=== PATIENT | female | born 1935 | race Caucasian/White ===

== ENCOUNTER 2018-06-05 19:48 | Inpatient (IN) | payer OTHER ==
[2018-06-05] MEDS ORDERED: ACETAMINOPHEN 325 MG TAB PO ONE (19:52)
[2018-06-05 20:15] LABS: PLATELET COUNT 182 10^3/uL (150-400)
--- NOTE | 2018-06-05 20:19 | EDPHY ---
H & P Stated Complaint: Altered mental status Time Seen by Provider: 06/05/18 19:51 HPI/ROS: CHIEF COMPLAINT: Confusion Limitations: Confusion HISTORY OF PRESENT ILLNESS: 82-year-old female presents with confusion. Onset of confusion yesterday. Associated with not feeling well. Her sister who lives on the [place] [facility] called 911 today for a welfare check because she was not able to get a hold of the patient. On EMS arrival, pt was confused and unable to explain her sx. There are multiple bottles of supplements around the house and the patient appeared to be quite organized. Seemed very unusual to them that she would be confused, given her very neat and organized house. She takes 15 supplement today for several years, without change in dosing. No URI symptoms, vomiting, abdominal pain, diarrhea, fever, cough or other symptoms. Denies headache. No recent fall. REVIEW OF SYSTEMS: complete 10 point ROS reviewed and is negative except for the noted elements in the HPI - Personal History Current Tetanus/Diphtheria Vaccine: Unsure Current Tetanus Diphtheria and Acellular Pertussis (TDAP): Unsure - Medical/Surgical History Hx Asthma: No Hx Chronic Respiratory Disease: No Hx Diabetes: No Hx Cardiac Disease: No Hx Renal Disease: No Hx Cirrhosis: No Hx Alcoholism: No Hx HIV/AIDS: No Hx Splenectomy or Spleen Trauma: No - Social History Smoking Status: Never smoked Alcohol Use: Sober Drug Use: None Additional Social History: Lives alone in own home - Physical Exam Exam: General Appearance: Alert, pleasant Eyes: Pupils equal and round, no conjunctival pallor or injection ENT, Mouth: Mucous membranes slightly dry Neck: Normal inspection Respiratory: Lungs are clear to auscultation Cardiovascular: Regular rate and rhythm Gastrointestinal: Abdomen is soft and nontender Neurological: alert, oriented to person only, motor 5/5, sensory grossly intact , cranial nerves grossly intact Skin: Warm and dry Extremities: Normal inspection Psychiatric: Flat affect Constitutional: Initial Vital Signs Temperature (C) 36.8 C 06/05/18 19:53 Heart Rate 79 06/05/18 19:53 Respiratory Rate 18 06/05/18 19:53 Blood Pressure 127/62 H 06/05/18 19:53 O2 Sat (%) 97 06/05/18 19:53 O2 Delivery Mode Room Air Allergies/Adverse Reactions: No Known Allergies Allergy (Unverified 06/05/18 19:52) Home Medications: Medication Instructions Recorded NK [No Known Home Meds] 06/05/18 Medical Decision Making - Diagnostics Imaging Results: CT head: air within cavernous sinus, likely secondary to IV Imaging: Discussed imaging studies w/ food service team member Radiologist ED Course/Re-evaluation: This pt presents with confusion of unclear duration. She has a low grade fever. Fever w/u is unremarkable, without obvious source. Mild hyponatremia, likely contributing to confusion. Pt dehydrated on exam with clinical h/o decreased oral intake. IV NS given. CT head reveals air within the cavernous sinus, likely secondary to IV. Doubt as etiology for confusion. d/w pt, remains confused. Neuro exam unchanged. Pt unable to safely go home, will need admission for further evaluation. The hospitalist service was consulted for admission. Differential Diagnosis: includes though not limited to infectious etiology such as UTI, pneumonia, influenza; CVA; electrolyte abn, hypoglycemia - Data Points Laboratory Results: Laboratory Results 06/05/18 19:50 06/05/18 19:50 06/05/18 19:58 TSH 2.420 uIU/mL uIU/mL (0.465-4.680) Medications Given: Acetaminophen (Tylenol) 650 mg PO Q4HRS PRN PRN Reason: Pain, Mild/Fever, Can Take PO Stop: 12/02/18 22:24 Last Admin: 06/06/18 08:41 Dose: 650 mg Dextrose/Sodium Chloride (D5w 1/2 Ns) 1,000 mls @ 75 mls/hr IV CONT DORIS Stop: 12/03/18 01:29 Last Admin: 06/06/18 10:31 Dose: 1,000 mls Discontinued Medications Acetaminophen (Tylenol) 650 mg PO EDNOW ONE Stop: 06/05/18 19:53 Last Admin: 06/05/18 20:02 Dose: 650 mg Sodium Chloride (Ns) 1,000 mls @ 0 mls/hr IV ONCE ONE; Wide Open PRN Reason: Protocol Stop: 06/05/18 20:21 Last Admin: 06/05/18 20:20 Dose: 1,000 mls Departure - Departure Disposition: [facility] In[facility] Acute
[2018-06-05] MEDS ORDERED: NS 1,000 ML IV ONE (20:20)
[2018-06-05 20:24] LABS: INR 1.07 (0.83-1.16); PROTIME(PATIENT) 14.1 SEC (12.0-15.0)
[2018-06-05] MEDS ORDERED: ONDANSETRON 4 MG/2 ML VIAL IVP PRN (22:25)
[2018-06-05] MEDS ORDERED: ONDANSETRON DISINTEGRATING 4 MG TAB PO PRN (22:25)
[2018-06-05] MEDS ORDERED: NS 1,000 ML IV SCH (22:30)
[2018-06-06] MEDS: D5W 1/2 NS 1,000 ML IV SCH ×2 (01:58→10:31)
--- NOTE | 2018-06-06 04:04 | GHP ---
DATE OF ADMISSION: 06/06/2018 SOURCE: Patient is able to provide limited history. During the interview, she has progressively declining mental status and is increasingly confused and restless. EMR was reviewed and case discussed with accepting hospitalist. CHIEF COMPLAINT: Confusion. HISTORY OF PRESENT ILLNESS: This is a pleasant 82-year-old female, who denies any past medical history and otherwise states that she is healthy, who presents to the emergency department after her sister, who lives on the [facility] called for a welfare check. Apparently patient had not called or talked to her, and the sister was unable to reach her by phone. The patient reports that she has been feeling unwell for 24 hours. She is not able to elaborate any additional details. She denies any fevers or chills. She does report that she started to develop a tremor since she arrived here. She denies any headache. No changes in vision. No sore throat. No rhinorrhea. No chest pain. No palpitations. No shortness of breath. No abdominal pain. No nausea , vomiting, or diarrhea. No dysuria or hematuria. Patient does note she has a remote history of recurrent thrombophlebitis, which required excision of superficial vessels. She denies any exacerbations of this at this time. Upon arrival to medical floor RN noted patient was ambulating with minimal assistance. She transported via wheelchair from the emergency department and was able to ambulate with minimal assistance. Additionally RN had noted patient 's initial intake was reported by the patient and she was able to answer questions appropriately. Over the course of my interview however patient developed increasing confusion. She was not answering questions appropriately. Within the 2-5 minutes that I stepped out to discuss plan with the RN patient had been able to get out of bed and she was noted to be on the ground in the bathroom with her pants half-way down. She was not able to stand up afterward dependently and she was leaning backward trying to grasp onto the RN or the bradford. She did not have any noted the tonic clonic activity, tongue biting. She had minimal amount of incontinence when she was found on the floor but subsequently placed on a bedside commode and voided and stooled. REVIEW OF SYSTEMS: 10 systems were reviewed. Negative, except as noted above; however, it is noted that review is limited as patient reports multiple answers , is not able to provide appropriate response. ALLERGIES: No known drug allergies. HOME MEDICATIONS: None listed. Patient denies any prescriptions. She reports that she takes multiple vitamins per day, but she is not able to clarify this. PAST MEDICAL HISTORY: Thrombophlebitis. Otherwise patient denies. PAST SURGICAL HISTORY: Patient reports superficial vein removal. FAMILY HISTORY: Unable to obtain due to patient's mental status. SOCIAL HISTORY: Patient lives alone. Per EMS report to the ED provider, patient's home was well organized and had multiple supplements on the counter. No other medications were noted. At time of interview, patient denies any tobacco, drugs, or alcohol use. CODE STATUS: Unable to discuss this with the patient at this time. Will leave her as a full COR for now pending further direct discussions with the patient once her mentation improves versus additional discussion with patient's sister who lives out of state. PHYSICAL EXAMINATION: VITAL SIGNS: Upon arrival to the emergency department, blood pressure was 127/62, heart rate 79, respiratory rate 18, O2 sat was 97% on room air, temperature 36.8. During my interview, it was noted the patient with increasing confusion and restlessness. Her repeated blood pressure was noted to be 129/73, heart rate of 117 to 120s, respiratory rate 20, pulse ox 96 % on room air, temperature 36.8. GENERAL: No acute distress. Frail, elderly, thin female was lying quietly in the bed. As noted above, during the course of the interview, patient with increasing confusion and restlessness. HEAD: Normocephalic, initially atraumatic. After I left the room for my interview, I went to go discuss orders with the RN, and STEWARD/STEWARDESS THIRD found the patient lying in the bathroom on her back with her head against the wall. It was unclear if she fell all the way backwards or slid. She was quite weak. She would not stand straight and was leaning backwards and then overcompensated by leaning forward. She could not get coordinated despite repeated instructions. She stated she was just trying to go to the bathroom. Following that fall, patient did have a small contusion that was slightly tender on the right posterior head. No lacerations or abrasions noted. EYES: Extraocular muscles grossly intact. Patient did have a little bit of nystagmus in the right eye moving laterally. Pupils were equal, round, reactive to light bilaterally and symmetric. No scleral icterus or conjunctival injection. ENT: Mucous membranes appeared slightly dry. No oropharyngeal erythema or exudates. Dentition in fair condition. No nasal discharge. NECK: Supple. Trachea midline. CV: Tachycardic in the 100s to 120s over the course of several exams. No murmurs, rubs, or gallops appreciated. RESPIRATORY: Unlabored breathing. Lungs were clear to auscultation bilaterally. No wheezes, rales, or rhonchi. ABDOMEN: Soft, nontender to palpation. No rebound, guarding, or masses appreciated. : No suprapubic tenderness to palpation. No Barnhart catheter in place. NEURO: Grossly nonfocal. No facial drooping. Moved all extremities. PSYCH: Patient was quite confused. She was oriented to person. She was initially oriented to place and the year and month; however, over the course of the interview, patient with progressive decline in mental status and subsequently was not able to answer those questions appropriately. She was restless but initially redirectable however progressive increase in confusion and restlessness. . LABORATORY STUDIES: 1. WBC 8.53, H and H are 12.7 and 37.6, MCV 90.4, platelet count is 182. No bands. Neutrophil percent, however, is 87.7. 2. PT is 14.1, INR is 1.07, PTT is 29.3. Lactic acid 1.0. Initial sodium is 128, potassium 3.6, chloride 93, CO2 is 22, anion gap 11, BUN of 23, creatinine 0.8, GFR greater than 60, glucose is 125, calcium is 8.6, total bilirubin 0.7, conjugated 0.2, ALT is 42, AST is 43, alk phos 81, total protein 6.1, albumin 3.6. TSH 2.420. 3. Repeated BMP: Sodium is 135, potassium 3.6, chloride 102, CO2 is 23, anion gap 10, BUN is 22, creatinine 0.8, GFR greater than 60, glucose 109, calcium is 8.5. Troponin is negative. UA: Specific gravity 1.010 with a pH of 5.0, trace ketones, otherwise negative. Flu A/B negative. U-tox is pending. Ethyl alcohol level is negative, less than 10. Blood cultures x2 pending. GI PCR is pending. 4. Chest x-ray: Image and report reviewed by me. Hyperexpansion compatible with COPD. No consolidative air-space opacifications to suggest pneumonia. Peribronchial thickening seen. No effusion. No pneumothorax. Atherosclerotic calcifications in the aorta. 5. CT head without contrast: Image and report reviewed. Negative for acute intracranial hemorrhage. Gas within the cavernous sinus and facial orbital vein suggestive of venous air embolism from venous access. Correlation with history of penetrating trauma recommended. Small focal hypodensity in the left internal capsule likely represents remote lacunar infarcts. Moderate age- related atrophy. No intracranial hemorrhage. 6. EKG reviewed by me shows sinus tachycardia with lots of motion artifact. There is no acute ST elevation. There is a little bit of variable baseline due to motion artifact. No acute ST changes. QTc is 438. ASSESSMENT AND PLAN: Pleasant 82-year-old female who presents to emergency department with confusion. Patient's status has changed slightly. Her vitals were previously within normal limits and now she is quite tachycardic. She also has had increasing confusion and was not able to hold herself up while trying to go to the bathroom and subsequently had a fall. She did not have loss of consciousness, but she is quite confused. Labs were remarkable only for a slightly decreased sodium. Repeated is within acceptable limits. 1. Confusion. Differential diagnosis concerning for infectious versus other metabolic versus neurologic, although less suspicious for this versus cardiac related. No focal deficits noted no reported observation of seizure like activity since arrival to ED/floor. Additional imaging is required due to patient's fall and worsening confusion. Also, she developed significant vomiting, and so once this is treated and stabilized, will have the patient go down to CT. Otherwise, at this time, she is definitely an aspiration risk. Will hold off on antibiotic therapy. Lactate was fine. She has no white count. Additional workup has been negative thus far regarding a potential source for infection, but now that she had some vomiting and diarrhea, will check a GI PCR, check a drug screen, alcohol, and she has 2 blood cultures that are already pending. Nausea, vomiting, and some mild abdominal distention on repeat exam. After patient started vomiting, CT abdomen and pelvis with contrast ordered. Patient previously denied any alcohol, drugs or new OTC medications. multiple vitamins were noted by EMS in her home. 2. Hyponatremia. Patient did end up having a bout of diarrhea shortly after arrival to the floor. Wonder if she has had some gastrointestinal symptoms recently and due to confusion, could not express this. She did have episode of diarrhea, which was sent out for GI PCR. She does appear dry and suspect that her hyponatremia is related to hypovolemia. She did receive a liter of fluid in the emergency department. Repeat BMP shows a corrected sodium of 136. Given patient's recent nausea, vomiting, and need for nothing by mouth status to avoid aspiration at this time, will go ahead and order some D5 half-normal saline without potassium. I don't feel a sodium of 128 would likely cause patient mental status changes. 3. SIRS, Tachycardia,tachypnea suspect some sort of metabolic derangement ongoing. Low suspicion for pulmonary embolism. Patient has not been hypoxic, and she is not complaining of any dyspnea or chest pains. Overall low risk for a pulmonary embolism. Will continue to consider if patient's heart rate is not improved in the near future. She has not been febrile. Sepsis evaluation has been negative with a normal lactate, and blood cultures are pending. CT head negative.no reported history of etoh and level negative but still consideration etoh withdrawal. additional discussion with patient sister in AM. for now holding benzos to minimize further altered 4. Anemia, normocytic. Minimally decreased H and H. No evidence of active bleeding at this time. 5. Chronic medical issues. Patient reports some issues with thrombophlebitis, but this has been treated surgically. She continues to have some episodes in her legs by her report. Thrombophlebitis, status post vein resection. no skin lesions or sores noted on full skin exam. 6. Fluid, electrolyte, nutrition: D5 half-normal saline as noted above. Electrolytes are adequate currently, and will replace if needed. Nothing by mouth status due to patient's nausea, vomiting, and risk of aspiration. 7. Prophylaxis: Anticoagulation is now on hold pending additional workup of patient's head and abdomen. SCDs as tolerated. Patient does have her own tight stockings in already, however. 8. COR status: At this time, unable to have a reasonable discussion with the patient regarding her advanced directive wishes. Will leave her code as full, and followup will be needed to discuss with the patient's sister as patient is unable to participate in the conversation currently. 9. Disposition: [facility] Given the severity of her symptoms, worsening confusion, additional workup needed. Anticipate that she will be here for greater than 2-midnight stay. /[id number]/MODL MTDD
[2018-06-06] MEDS ORDERED: IOPAMIDOL (ISOVUE-300) 100 ML BTL ONE (04:19)
--- NOTE | 2018-06-06 06:16 | CPEKG ---
Test Reason : OPEN Blood Pressure : / mmHG Vent. Rate : 120 BPM Atrial Rate : 120 BPM P-R Int : 052 ms QRS Dur : 079 ms QT Int : 310 ms P-R-T Axes : 065 036 047 degrees QTc Int : 438 ms Sinus tachycardia Confirmed by Petar Francisco ([id number]) on 06/06/2018 6:15:45 AM Referred By: Confirmed By:Petar Francisco
[2018-06-06] MEDS: ACETAMINOPHEN 325 MG TAB PO PRN ×3 (08:41→23:36)
--- NOTE | 2018-06-06 08:49 | PDMN ---
Medical Necessity Medical necessity: Pt meets IP criteria as of 06/05/2018 per and DON MG-N ( neurology GRG); est los > 2 mn for ongoing tx and management of altered mental status in an elderly pt as well as tachycardia and tachypnea; requiring further work up, med management, and therapies.
[2018-06-06] MEDS ORDERED: ENOXAPARIN 40 MG/0.4 ML SYR SC SCH (09:00)
--- NOTE | 2018-06-06 11:20 | ASMTCMCOM ---
CM Note CM Note Notes: Pts case discussed w/ CATRACHO Casanova. Pt is a 82 y/o female admitted for confusion. Pt was previously living independently. PT has been ordered and awaiting recommendations. Needs are TBD at this time. CM to follow. Plan: TBD Date Signed: 06/06/2018 11:19 AM Electronically Signed By:LENA Hernandez
[2018-06-06] MEDS ORDERED: NS 500 ML IV ONE (14:02)
--- NOTE | 2018-06-06 14:07 | HOSPPROG ---
Hospitalist Progress Note Assessment/Plan: 82 yo F w min PMH here w encephalopathy, nausea, vomiting. This is most c/w viral illness sespis: fever, tachycardia no source identified lactate OK tachcyardia: c/w fever, infection sinus (ekg interp by me) ID: this is most c/w viral infection- fever, nausea, vom influenza neg no meningismus discussed risks and benefits of LP w sister, will hold off for now tachycardia: bolus X 1 and follow encephalopathy: metabolic 2/2 viral infection follow no focal neurologic deficits hold off on further neuro imaging tox screen neg proph: lmwh dispo: inpt Subjective: disucssed case w sister. cxr w no infiltrate (interp by me) Objective: Vital Signs Temp Pulse Resp BP Pulse Ox 37.3 C 89 16 121/60 H 96 06/06/18 11:38 06/06/18 11:38 06/06/18 11:38 06/06/18 11:38 06/06/18 11:38 Microbiology 06/06/18 01:44 Gastrointestinal Tract Panel (PCR) - Final Stool No Organism Detected By Pcr Laboratory Results 06/06/18 04:26 06/05/18 06/06/18 06/07/18 05:59 05:59 05:59 Intake Total 1182 115 Output Total 251 300 Balance 931 -185 PT 14.1 SEC (12.0-15.0) 06/05/18 19:50 INR 1.07 (0.83-1.16) 06/05/18 19:50 - Physical Exam Constitutional: no apparent distress, appears nourished Eyes: PERRL, anicteric sclera Ears, Nose, Mouth, Throat: moist mucous membranes, hearing normal Cardiovascular: regular rate and rhythym, no murmur, rub, or gallop Respiratory: no respiratory distress, no rales or rhonchi Gastrointestinal: normoactive bowel sounds, soft, non-tender abdomen Genitourinary: no bladder fullness, No harrison in urethra Skin: warm, normal color Musculoskeletal: full muscle strength Neurologic: No AAOx3 ICD10 Worksheet Patient Problems: Problems Problem Status Onset Fever Acute
[2018-06-07] MEDS: D5W 1/2 NS 1,000 ML IV SCH (00:30)
[2018-06-07] MEDS ORDERED: NS 500 ML IV ONE ×3 (01:16→02:32)
[2018-06-07] MEDS: ACETAMINOPHEN 325 MG TAB PO PRN (04:02)
[2018-06-07 05:53] LABS: PLATELET COUNT 144 10^3/uL (150-400)
--- NOTE | 2018-06-07 10:32 | HOSPPROG ---
Hospitalist Progress Note Assessment/Plan: 82 yo F w min PMH here w encephalopathy, nausea, vomiting. This is most c/w viral illness sepsis: fever, tachycardia suspect CAP given change in lung exam lactate OK ?community acquired pneumonia: new crackles b/l, no jvd to suggest volume overload start ceftriaxone/azithro cxr now AF: this is new, as far as patient knows CHADSVasc 1 for age follow check echo hold on anticoag tachcyardia: c/w fever, infection sinus (ekg interp by me) ID: this is most c/w viral infection- fever, nausea, vom influenza neg no meningismus discussed risks and benefits of LP w sister, will hold off for now tachycardia: bolus X 1 and follow encephalopathy: metabolic 2/2 infection follow no focal neurologic deficits hold off on further neuro imaging tox screen neg proph: lmwh dispo: inpt Subjective: febrile overight. ekg w new AF (interp by me). more alert. weaker Objective: Vital Signs Temp Pulse Resp BP Pulse Ox 36.8 C 105 H 26 H 109/56 L 94 06/07/18 08:41 06/07/18 08:41 06/07/18 08:41 06/07/18 08:41 06/07/18 08:41 Microbiology 06/06/18 01:44 Gastrointestinal Tract Panel (PCR) - Final Stool No Organism Detected By Pcr Laboratory Results 06/07/18 04:41 06/07/18 04:41 06/06/18 06/07/18 06/08/18 05:59 05:59 05:59 Intake Total 1182 2165 Output Total 251 1400 Balance 931 765 PT 14.1 SEC (12.0-15.0) 06/05/18 19:50 INR 1.07 (0.83-1.16) 06/05/18 19:50 - Physical Exam Constitutional: no apparent distress, appears nourished Eyes: PERRL Ears, Nose, Mouth, Throat: hearing normal, No moist mucous membranes Cardiovascular: irregularly irregular, tachycardia, No systolic murmur, No JVD Respiratory: other (bilateral crackles, R>L. new ffrom yesterday) Gastrointestinal: normoactive bowel sounds, soft, non-tender abdomen Genitourinary: no bladder fullness, No harrison in urethra Skin: warm, normal color Musculoskeletal: no muscle tenderness, No full muscle strength Neurologic: No AAOx3 Psychiatric: interacting appropriately ICD10 Worksheet Patient Problems: Problems Problem Status Onset Fever Acute
[2018-06-07] MEDS: AZITHROMYCIN IV 500 MG in NS 250 ML IV SCH (10:50)
[2018-06-07] MEDS: ENOXAPARIN 30 MG/0.3 ML SYR SC SCH (12:44)
--- NOTE | 2018-06-07 14:03 | CPEKG ---
Test Reason : OPEN Blood Pressure : / mmHG Vent. Rate : 144 BPM Atrial Rate : 207 BPM P-R Int : 118 ms QRS Dur : 074 ms QT Int : 304 ms P-R-T Axes : 246 033 030 degrees QTc Int : 471 ms Atrial fibrillation with rapid V-rate Repolarization abnormality, prob rate related Confirmed by Petar Francisco ([id number]) on 06/07/2018 2:03:38 PM Referred By: Confirmed By:Petar Francisco
[2018-06-07] MEDS ORDERED: NS BOLUS 500 ML (Wide open) IV ONE (16:30)
--- NOTE | 2018-06-07 17:04 | ECHO ---
[email or web address] [address] [address] Main: [phone] Fax: Transthoracic Echocardiogram Name: ASIM SANON MR#: [id number] Study Date: 06/07/2018 Study Time: 10:48 AM Date of : 1935 Age: 82 year(s) Height: 162.6 cm (64 in.) Weight: 53.07 kg (117 lb.) BSA: 1.56 m2 Gender: Female Examination: Echo Indication: new AF Image Quality: Adequate Contrast: Requested by: Clark Martinez BP: 109 mmHg/56 mmHg Heart Rate: Rhythm: Indication: new AF Procedure Staff Flexboard Operator: Eileen Loyola [facility] Reading Physician: Kelvin Arredondo MD Requesting Provider: Conclusions: Normal size left ventricle. No LV hypertrophy. Normal global systolic LV function. EF is 65 %. The mitral valve is normal in appearance and function. Mild mitral valve regurgitation is present. Aortic valve is not well visualized. There is no significant aortic valve regurgitation. No aortic valve stenosis is present. The pulmonary artery pressure could not be adequately estimated. No old studies for comparison. Measurements: Chambers Valvular Assessment AV/MV Valvular Assessment TV/PV Normal Normal Normal Name Value Range Name Value Range Name Value Range Ao Kathy (2D): 2.5 cm (1.4 cm-2.6 AV Vmax: 1.53 m/s (1 m/s-1.7 PV Vmax: 0.91 m/s (0.6 m/s-0.9 cm) m/s) m/s) IVSd (2D): 0.9 cm (0.6 cm-1.1 AV maxP mmHg ( - ) PV PGmax: 3 mmHg ( - ) cm) AV meanP mmHg ( - ) LVDd (2D): 3.6 cm (3.9 cm-5.3 LIBERTY (VTI): 2.0 cm ( - ) cm) MV E Vmax: 1.02 m/s ( - ) LVDs (2D): 2.2 cm (2.1 cm-4 MV A Vmax: 1.01 m/s ( - ) cm) MV E/A: 1.01 ( - ) LVPWd (2D): 0.9 cm ( - ) MV PHT: 0.046 s ( - ) LVOTd 1.9 cm 1.9 cm mm MVA (PHT): 4.8 s ( - ) LVEF (BP): 65 % (>=55 %) RVDd(2D): 2.7 cm (1.9 cm-3.8 cmmm) Patient: ASIM SANON Study Date: 06/07/2018 Page 1 of 2 10:48 AM Continued Measurements: Chambers Valvular Assessment AV/MV Name Value Name Value LADs: 2.8 cm MV DecTime: 158 m/s LADs Lon.5 cm MV E' Septal: 0.09 m/s LA Area: 14.0 cm2 MV E/E' Septal: 11.00 LA Volume: 36 ml MV E/E' Lateral: 9.80 LA Volume Index: 23.1 ml/m2 RA Area: 12.1 cm2 Additional Vessels Name Value Inferior Vena Cava: 1.1 cm Findings: Left Ventricle: Normal size left ventricle. No LV hypertrophy. Normal global systolic LV function. EF is 65 %. No regional wall motion abnormality. Normal diastolic LV function. Right Ventricle: Normal size right ventricle. Normal RV function. Left Atrium: The left atrium is normal in size. Right Atrium: The right atrium is normal in size. Mitral Valve: The mitral valve is normal in appearance and function. Mild mitral valve regurgitation is present. No mitral stenosis is present. Aortic Valve: Aortic valve is not well visualized. There is no significant aortic valve regurgitation. No aortic valve stenosis is present. Tricuspid Valve: The tricuspid valve is normal in appearance and function. Trivial tricuspid valve regurgitation. Pulmonic Valve: The pulmonic valve is normal in appearance and function. There is no pulmonic regurgitation seen. Aorta: The aorta is normal. Normal size aortic root measuring 2.5 cm. IVC: The IVC is normal sized. Pericardium: No pericardial effusion. No pleural effusion. Exam Comments: Technically difficult, patient very thin and disoriented. Some imaging off axis. (No Signature Object) Patient: ASIM SANON Study Date: 06/07/2018 Page 2 of 2 10:48 AM [id number]
[2018-06-08] MEDS: NS 1,000 ML IV SCH ×2 (00:08→08:36)
[2018-06-08] MEDS: ACETAMINOPHEN 325 MG TAB PO PRN (00:29)
[2018-06-08] MEDS ORDERED: DILTIAZEM 25 MG/5 ML VIAL IVP ONE (08:30)
[2018-06-08] MEDS ORDERED: DILTIAZEM 125 MG in D5W 125 ML IV SCH (08:30)
[2018-06-08] MEDS: ENOXAPARIN 30 MG/0.3 ML SYR SC SCH (08:38)
[2018-06-08] MEDS ORDERED: FUROSEMIDE 20 MG/2 ML VIAL IVP ONE (09:08)
[2018-06-08] MEDS: AZITHROMYCIN IV 500 MG in NS 250 ML IV SCH (09:18)
--- NOTE | 2018-06-08 09:28 | HOSPPROG ---
Hospitalist Progress Note Assessment/Plan: 82 yo F w min PMH here w encephalopathy, nausea, vomiting. This is most c/w viral illness sepsis: fever, tachycardia suspect CAP given change in lung exam lactate OK community acquired pneumonia:cxr w RLL pneumonia start ceftriaxone/azithro blood cx neg AF: this is new, as far as patient knows [facility] 1 for age follow echo largely normmal rapid overnight w resulting acute CHF (diastolic) 1. transfer to PCU for dilt gtt 2. lasix X 1 3. cardiology to see 4. echo largely normal 5. may benefit from cardioversion tachcyardia: c/w fever, infection sinus (ekg interp by me) ID: this is most c/w viral infection- fever, nausea, vom influenza neg no meningismus discussed risks and benefits of LP w sister, will hold off for now tachycardia: bolus X 1 and follow encephalopathy: metabolic 2/2 infection follow no focal neurologic deficits hold off on further neuro imaging tox screen neg proph: lmwh dispo: inpt to PCU 35 minutes crit care Subjective: rapid AF overnight w rising 02 requirement. case d.w dr salmon. less confused this AM Objective: Vital Signs Temp Pulse Resp BP Pulse Ox 36.6 C 160 H 36 H 120/88 H 89 L 06/08/18 08:00 06/08/18 08:36 06/08/18 08:00 06/08/18 08:00 06/08/18 08:00 Laboratory Results 06/07/18 04:41 06/07/18 04:41 06/07/18 06/08/18 06/09/18 05:59 05:59 05:59 Intake Total 2165 2130 Output Total 1400 700 Balance 765 1430 PT 14.1 SEC (12.0-15.0) 06/05/18 19:50 INR 1.07 (0.83-1.16) 06/05/18 19:50 - Physical Exam Constitutional: no apparent distress Eyes: PERRL, anicteric sclera Ears, Nose, Mouth, Throat: moist mucous membranes, hearing normal Cardiovascular: irregularly irregular, JVD Respiratory: other (diffuse crackles, worse than yesterday) Gastrointestinal: normoactive bowel sounds, soft, non-tender abdomen Genitourinary: No harrison in urethra Skin: warm, normal color Musculoskeletal: full muscle strength, no muscle tenderness Neurologic: AAOx3 ICD10 Worksheet Patient Problems: Problems Problem Status Onset Fever Acute
[2018-06-08 13:46] LABS: PLATELET COUNT 148 10^3/uL (150-400)
--- NOTE | 2018-06-08 13:51 | GCON ---
CARDIOLOGY CONSULTATION DATE OF CONSULTATION: 06/08/2018 REFERRING PHYSICIAN: Clark Martinez MD REASON FOR CONSULTATION: We were asked by Dr. Martinez of [facility] to evaluate the patient fo r paroxysmal atrial fibrillation. HISTORY OF PRESENT ILLNESS: The patient is an 82-year-old female who was brought in with encephalopa thy, nausea and vomiting. She was found to have fever and tachycardia with chest x-ray suggestive of a right lower lobe pneumonia. In this admission, she was noted to be tachycardic, and EKG on 2017 showed atrial fibrillation. We were asked to evaluate the patient and make recommendations for treatment of this. The patient reports she lives independently. She denies any chest pain, PND, orthopnea, palpitations , presyncope, syncope. She was feeling quite well up until the point she had the onset of her pneumo alejandra symptoms. PAST MEDICAL HISTORY: Includes thrombophlebitis. PAST SURGICAL HISTORY: Vein removal surgery. FAMILY HISTORY: No significant family history. She has a sister who is living. OUTPATIENT MEDICATIONS: Include none. ALLERGIES: No known drug allergies. SOCIAL HISTORY: Patient lives independently. She denies any alcohol or tobacco use. REVIEW OF SYSTEMS: As per HPI. A 10-point review of systems was obtained and is negative, except fo r what is dictated. PHYSICAL EXAMINATION: VITAL SIGNS: BP of 142/70, heart rate of 114, O2 saturation 96%. Respiration s 24. O2 saturation is 96% on 7 L/minute, temp of 98.4 degrees Fahrenheit. GENERAL: She is an elde rly female, in no apparent distress. HEENT: Head is normocephalic, atraumatic. Eyes without sclera l icterus. HEART: Regular rate and rhythm. LUNGS: Severely diminished with rhonchi and rales ausc ultated. ABDOMEN: Soft, with normoactive bowel sounds. : No Barnhart present. SKIN: Warm and dry . PSYCH: Patient appears to be mentating within normal limits. NEURO: No focal deficits detected. LABORATORY DATA: CBC with WBC 6.11, hemoglobin 11.7, hematocrit 34.4, platelet count of 144. BMP wi th sodium 134, potassium 3.4, chloride 107, CO2 20, BUN 24, creatinine 0.9, glucose of 135. Her nasa l flu swabs were negative. A 12-lead ECG from 06/06/2018, shows sinus tachycardia. 06/07/2018, EKG personally interpreted reveals atrial fibrillation with RVR. 06/08/2018, ECG reveals sinus tachycard ia. Telemetry personally reviewed shows sinus tachycardia. 06/07/2018, echocardiogram shows EF of 6 5, mild MR. IMPRESSION AND PLAN: The patient is an 82-year-old female who presented with encephalopathy in the s etting of pneumonia and sepsis. 1. Paroxysmal atrial fibrillation. She was noted to be in atrial fibrillation yesterday, as well as today. She has now converted to sinus rhythm. She has a CHADS-VASc of 3 given her age and female s ex. We have reviewed options with her, and patient will be started on Eliquis at the lower dosing at 2.5 b.i.d., given age and body weight under 60 kg. Risks, benefits, and alternatives were reviewed with patient. 2. Tachycardia. She appears to be going in and out of atrial fibrillation. This is likely related to her pneumonia. We will follow along on telemetry. /[id number]/MODL
[2018-06-08] MEDS: METOPROLOL TARTRATE 25 MG TAB PO SCH ×2 (14:56→19:56)
[2018-06-08] MEDS ORDERED: PROTOCOL POTASSIUM 1 DOSE MISC PRN (15:01)
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
[2018-06-08] MEDS ORDERED: POTASSIUM CL 10 MEQ TAB PO ONE ×2 (15:22→21:43)
[2018-06-08] MEDS ORDERED: POTASSIUM Cl (KCl) 40 MEQ in NS 1,000 ML IV SCH (15:30)
[2018-06-08] MEDS: APIXABAN 2.5 MG TAB PO SCH (19:58)
[2018-06-08] MEDS ORDERED: GUAIFENESIN/DM 10 ML UDCUP PO PRN (23:00)
[2018-06-09] MEDS ORDERED: FUROSEMIDE 20 MG/2 ML VIAL IVP ONE (00:19)
[2018-06-09] MEDS ORDERED: FUROSEMIDE 20 MG/2 ML VIAL ONE (00:26)
[2018-06-09] MEDS ORDERED: IPRATROPIUM/ALBUTEROL 3 ML DEYVIAL ONE (00:26)
[2018-06-09 04:37] LABS: PLATELET COUNT 146 10^3/uL (150-400)
--- NOTE | 2018-06-09 09:33 | HOSPPROG ---
Hospitalist Progress Note Assessment/Plan: 82 yo F w min PMH here w encephalopathy, nausea, vomiting. This is most c/w viral illness sepsis: fever, tachycardia suspect CAP given change in lung exam lactate OK septic physiology has resolved BABAK: likely hemodynamic given fever, lasix, etc u lytes ordered, lasix noted check urine eos given beta lactam continue gentle IVF repeat met panel at noon hyperchloremic acidosis: change to LR community acquired pneumonia:cxr w RLL pneumonia start ceftriaxone/azithro blood cx neg AF: this is new, as far as patient knows [facility] 3 for age and sex follow echo largely normmal rapid overnight w resulting acute CHF (diastolic) 1. now in sinus 2. echo largely normal 3. BB started 4. eliquis tachcyardia: c/w fever, infection sinus (ekg interp by me) resolved encephalopathy: metabolic 2/2 infection follow no focal neurologic deficits hold off on further neuro imaging tox screen neg 06/09- improving proph: lmwh dispo: inpt to PCU Subjective: feels better. less tachy. tele: sinus (interp by me). case d/w gaye rider, cardiology PA Objective: Vital Signs Temp Pulse Resp BP Pulse Ox 37.2 C 95 22 H 131/74 H 91 L 06/09/18 07:55 06/09/18 07:55 06/09/18 07:55 06/09/18 07:55 06/09/18 07:55 Laboratory Results 06/09/18 04:06 06/09/18 04:06 06/08/18 06/09/18 06/10/18 05:59 05:59 05:59 Intake Total 2130 2662 Output Total 700 3600 Balance 1430 -938 PT 14.1 SEC (12.0-15.0) 06/05/18 19:50 INR 1.07 (0.83-1.16) 06/05/18 19:50 - Physical Exam Constitutional: no apparent distress, appears nourished Eyes: PERRL, anicteric sclera Ears, Nose, Mouth, Throat: hearing normal, No moist mucous membranes Cardiovascular: regular rate and rhythym, no murmur, rub, or gallop, No irregularly irregular, No JVD Respiratory: other (b/l crackles, improved) Gastrointestinal: normoactive bowel sounds, soft, non-tender abdomen Genitourinary: No harrison in urethra Skin: warm, normal color Musculoskeletal: other (no pre sacral edema), No full muscle strength Neurologic: AAOx3 Psychiatric: interacting appropriately ICD10 Worksheet Patient Problems: Problems Problem Status Onset Fever Acute
[2018-06-09] MEDS ORDERED: POTASSIUM CL 10 MEQ TAB PO ONE (09:34)
[2018-06-09] MEDS: METOPROLOL TARTRATE 25 MG TAB PO SCH ×2 (09:56→20:43)
[2018-06-09] MEDS: APIXABAN 2.5 MG TAB PO SCH ×2 (09:56→20:43)
[2018-06-09] MEDS: AZITHROMYCIN IV 500 MG in NS 250 ML IV SCH (10:30)
[2018-06-09] MEDS: LR 1,000 ML IV SCH ×2 (12:06→23:05)
--- NOTE | 2018-06-09 15:52 | ASMTCMCOM ---
CM Note CM Note Notes: 06/09/2018 Case Management Note Met w/pt and sister Kelly [phone]. Pt is strong in her opinion that she is able to safely return home without assistance. Encouraged pt to discuss with MD. Sister feels that pt needs SNF rehab. Lengthy discussion that a safe discharge home will require 24/7 supervision in addition to Home Care. Sister stated apartment is small and unsuitable for someone staying with pt. Pt refused home care as well. Faxed referrals to [facility]. Faxed updates to [facility]. Case Management d/c poc: SNF rehab pending patient agreeing. Case Management to follow. Date Signed: 06/09/2018 03:51 PM Electronically Signed By:Pat Moran RN
--- NOTE | 2018-06-09 17:36 | CPEKG ---
Test Reason : OPEN Blood Pressure : / mmHG Vent. Rate : 105 BPM Atrial Rate : 106 BPM P-R Int : 153 ms QRS Dur : 080 ms QT Int : 322 ms P-R-T Axes : 034 050 057 degrees QTc Int : 426 ms Sinus tachycardia Confirmed by Petar Francisco ([id number]) on 06/09/2018 5:36:14 PM Referred By: Confirmed By:Petar Francisco
[2018-06-09] MEDS ORDERED: POTASSIUM CL 20 MEQ TAB PO ONE (23:35)
[2018-06-10] MEDS ORDERED: POTASSIUM CL 20 MEQ TAB PO ONE (02:30)
[2018-06-10] MEDS: METOPROLOL TARTRATE 25 MG TAB PO SCH ×2 (08:53→21:29)
[2018-06-10] MEDS: APIXABAN 2.5 MG TAB PO SCH ×2 (08:53→21:29)
[2018-06-10] MEDS ORDERED: POTASSIUM CL 10 MEQ TAB PO ONE (09:12)
[2018-06-10] MEDS: AZITHROMYCIN IV 500 MG in NS 250 ML IV SCH (10:13)
--- NOTE | 2018-06-10 14:22 | HOSPPROG ---
Hospitalist Progress Note Assessment/Plan: 82 yo F w min PMH here w encephalopathy, nausea, vomiting. sepsis: fever, tachycardia on admission lactate OK septic physiology has resolved BABAK: likely hemodynamic given fever, lasix, etc u lytes ordered, lasix noted Holding IVF due to clinical overload today, crackles and LE edema community acquired pneumonia:cxr w RLL pneumonia Continue ceftriaxone/azithro (Day 4/7) blood cx neg AF: this is new, as far as patient knows [facility] 3 for age and sex follow echo largely normmal rapid overnight w resulting acute CHF (diastolic) 1. now in sinus 2. echo largely normal 3. BB continued 4. eliquis tachcyardia: c/w fever, infection sinus (ekg interp by me) resolved encephalopathy: metabolic 2/2 infection follow no focal neurologic deficits hold off on further neuro imaging tox screen neg proph: lmwh dispo: Pending clinical course, PT recommending SNF Subjective: Patient reports complaints with food this AM Objective: Vital Signs Temp Pulse Resp BP Pulse Ox 36.4 C 81 16 130/65 H 82 L 06/10/18 11:48 06/10/18 11:48 06/10/18 11:48 06/10/18 11:48 06/10/18 13:41 Laboratory Results 06/09/18 04:06 06/10/18 04:04 06/09/18 06/10/18 06/11/18 05:59 05:59 05:59 Intake Total 2662 3165 Output Total 3600 1900 Balance -938 1265 PT 14.1 SEC (12.0-15.0) 06/05/18 19:50 INR 1.07 (0.83-1.16) 06/05/18 19:50 - Physical Exam Constitutional: chronically ill appearing Eyes: PERRL Ears, Nose, Mouth, Throat: moist mucous membranes Cardiovascular: regular rate and rhythym, edema Respiratory: no respiratory distress, inspiratory crackles Gastrointestinal: normoactive bowel sounds Skin: warm Neurologic: No AAOx3 (Oriented to person and time, not place ) Psychiatric: flat affect ICD10 Worksheet Patient Problems: Problems Problem Status Onset Fever Acute
[2018-06-10] MEDS: ACETAMINOPHEN 325 MG TAB PO PRN (21:29)
[2018-06-11] MEDS ORDERED: POTASSIUM CL 20 MEQ TAB PO ONE (00:56)
[2018-06-11] MEDS ORDERED: POTASSIUM CL 10 MEQ TAB PO ONE ×2 (08:42→21:30)
[2018-06-11 08:54] LABS: PLATELET COUNT 210 10^3/uL (150-400)
[2018-06-11] MEDS: AZITHROMYCIN 250 MG TAB PO SCH (09:52)
[2018-06-11] MEDS: METOPROLOL TARTRATE 25 MG TAB PO SCH ×2 (09:53→21:23)
[2018-06-11] MEDS: APIXABAN 2.5 MG TAB PO SCH ×2 (09:53→21:23)
--- NOTE | 2018-06-11 13:35 | HOSPPROG ---
Hospitalist Progress Note Assessment/Plan: 82 yo F w min PMH here w encephalopathy, nausea, vomiting. sepsis: fever, tachycardia on admission lactate OK septic physiology has resolved BABAK: likely hemodynamic given fever, lasix, etc u lytes ordered, lasix noted Holding IVF due to clinical overload on 06/10 Cr improved to 1.0 this AM community acquired pneumonia:cxr w RLL pneumonia Continue ceftriaxone/azithro (Day 10/24) blood cx neg AF: this is new, as far as patient knows [facility] 3 for age and sex follow echo largely normmal rapid overnight w resulting acute CHF (diastolic) 1. now in sinus 2. echo largely normal 3. BB continued 4. eliquis tachcyardia: c/w fever, infection sinus (ekg interp by me) resolved encephalopathy: metabolic 2/2 infection follow no focal neurologic deficits hold off on further neuro imaging tox screen neg proph: lmwh dispo: Pending clinical course, PT recommending SNF Subjective: Patient reports feeling improved this AM Objective: Vital Signs Temp Pulse Resp BP Pulse Ox 36.7 C 89 14 130/70 H 90 L 06/11/18 12:00 06/11/18 12:00 06/11/18 12:00 06/11/18 12:00 06/11/18 12:00 Laboratory Results 06/11/18 07:49 06/11/18 07:49 06/10/18 06/11/18 06/12/18 05:59 05:59 05:59 Intake Total 3165 400 Output Total 1900 1100 Balance 1265 -700 PT 14.1 SEC (12.0-15.0) 06/05/18 19:50 INR 1.07 (0.83-1.16) 06/05/18 19:50 - Physical Exam Constitutional: no apparent distress Eyes: PERRL Ears, Nose, Mouth, Throat: moist mucous membranes Cardiovascular: regular rate and rhythym Respiratory: no respiratory distress, reduced air movement Gastrointestinal: soft, non-tender abdomen Skin: warm Musculoskeletal: generalized weakness Neurologic: AAOx3 Psychiatric: interacting appropriately ICD10 Worksheet Patient Problems: Problems Problem Status Onset Fever Acute
--- NOTE | 2018-06-11 16:31 | ASMTCMCOM ---
CM Note CM Note Notes: 06/11/2018 Case Management Note Met w/pt and sister Kelly [phone] and niece (Kelly's daughter) Sierra who lives in [place]. Sierra can be reached at [phone] (cell) or [phone] (home). Pt more agreeable to SNF rehab today. Sierra and Kelly touring [facility], [facility] and [facility]. Case Management to check with pt and family for facility choice tomorrow. Left vm for Kelly with case management phone number. Case Management d/c poc: SNF rehab Case Management to follow. Date Signed: 06/11/2018 04:31 PM Electronically Signed By:Pat Moran RN
[2018-06-12 04:37] LABS: PLATELET COUNT 264 10^3/uL (150-400)
[2018-06-12] MEDS: METOPROLOL TARTRATE 25 MG TAB PO SCH ×2 (08:30→20:47)
[2018-06-12] MEDS: APIXABAN 2.5 MG TAB PO SCH ×2 (08:30→20:46)
[2018-06-12] MEDS: AZITHROMYCIN 250 MG TAB PO SCH (08:30)
[2018-06-12] MEDS ORDERED: POTASSIUM CL 10 MEQ TAB PO ONE ×2 (09:12→19:41)
--- NOTE | 2018-06-12 10:24 | HOSPPROG ---
Hospitalist Progress Note Assessment/Plan: 82 yo F w min PMH here w encephalopathy, nausea, vomiting. sepsis: resolved. presumed to be 2/2 to PNA. on CAP coverage with azithro and CTX. White count up today but patient clinically feels better. Still quite hypoxic. BABAK: creatinine returned to 0.8 with fluids and resolution of sepsis. community acquired pneumonia:cxr w RLL pneumonia Continue ceftriaxone/azithro (Day 6/) blood cx neg AF: CHADS of 3. Started on eliquis at lower dose of 2.5 bid by cardiology who was consulted. No further episodes of RVR that I have seen today. Continue to monitor and if goes back into afib with RVR would treat with PRN IV pushes of dilt. encephalopathy:- seen by BOX REPAIRER who does note patient is cognitively impaired. Family concerned. Will monitor for improvement and have BOX REPAIRER perform slums. PPX- SCds, eliquis Fluids- Po Lytes- WNL, monitor Nutrition- regular Cor- need to discuss with family Dispo- inpatient for pneumonia, hypoxia. Will need SNF on dc. Subjective: patient still short of breath with some cough but improved. Objective: Vital Signs Temp Pulse Resp BP Pulse Ox 36.3 C 86 22 H 132/86 H 95 06/12/18 07:43 06/12/18 07:43 06/12/18 07:43 06/12/18 07:43 06/12/18 07:43 Laboratory Results 06/12/18 03:22 06/12/18 03:22 06/11/18 06/12/18 06/13/18 05:59 05:59 05:59 Intake Total 400 640 Output Total 1100 300 Balance -700 340 PT 14.1 SEC (12.0-15.0) 06/05/18 19:50 INR 1.07 (0.83-1.16) 06/05/18 19:50 - Physical Exam Constitutional: no apparent distress, appears nourished, not in pain Eyes: PERRL, anicteric sclera, EOMI Ears, Nose, Mouth, Throat: moist mucous membranes, hearing normal, ears appear normal, no oral mucosal ulcers Cardiovascular: regular rate and rhythym, no murmur, rub, or gallop Respiratory: reduced air movement, inspiratory crackles Gastrointestinal: normoactive bowel sounds, soft, non-tender abdomen, no palpable masses Genitourinary: no bladder fullness, no bladder tenderness, no renal bruits Skin: no rashes or abrasions, no fluctuance, no induration Musculoskeletal: full muscle strength, no muscle tenderness, normal joint ROM Neurologic: AAOx3, sensation intact bilaterally Psychiatric: interacting appropriately, not anxious, not encephalopathic, thought process linear Lymph, Heme, Immunologic: no cervical LAD, no supraclavicular LAD ICD10 Worksheet Patient Problems: Problems Problem Status Onset Fever Acute
[2018-06-12 13:34] LABS: PLATELET COUNT 276 10^3/uL (150-400)
--- NOTE | 2018-06-12 14:33 | ASMTCMCOM ---
CM Note CM Note Notes: Pt, sister and niece seen during rounds. SNF/rehab is being recommended. Pt's family has chosen [facility]. they will be alerted. Family requested payment info re Medicare; they were given this and appeared to understand it. D/C Plan: [facility]sorio Date Signed: 06/12/2018 02:33 PM Electronically Signed By:Kamini Manjarrez
[2018-06-13 04:32] LABS: PLATELET COUNT 302 10^3/uL (150-400)
[2018-06-13] MEDS: METOPROLOL TARTRATE 25 MG TAB PO SCH ×2 (08:30→21:31)
[2018-06-13] MEDS: AZITHROMYCIN 250 MG TAB PO SCH (08:30)
[2018-06-13] MEDS: APIXABAN 2.5 MG TAB PO SCH ×2 (08:30→21:31)
[2018-06-13] MEDS ORDERED: POTASSIUM CL 10 MEQ TAB PO ONE ×3 (09:44→21:24)
--- NOTE | 2018-06-13 11:43 | ASMTCMCOM ---
CM Note CM Note Notes: Patient plan of care reviewed in am rounds. She is done with antibiotics and ready to dc to SNF. CM to follow for needs. Plan: DC to SNF when medically ready for discharge. Date Signed: 06/13/2018 11:43 AM Electronically Signed By:Ailyn Sheehan RN
[2018-06-13] MEDS ORDERED: FUROSEMIDE 20 MG TAB PO ONE (14:58)
--- NOTE | 2018-06-13 15:53 | HOSPPROG ---
Hospitalist Progress Note Assessment/Plan: 82 yo F w min PMH here w encephalopathy, nausea, vomiting. sepsis: resolved. presumed to be 2/2 to PNA. completed 7 days of abx with rocephin and azithro. leukocytosis trending down today. Acute hypoxemic respiratory failure- thought to be secondary to PNA. she did have evidence of fluid overload and todays CXR, which I reviewed shows some bilateral pleural effusions. Previous CXR with interstitial infiltrates which could have been due to CHF, but TTE showed good LVEF. Patient is still requiring oxygen and family concerned about effusions and oxygen requirement. She was given lasix earlier in admission and it is reasonable to try another small oral dose to see if we can get her off oxygen entirely. She has good renal function and adequate BP. -Give 20mg PO lasix -monitor lytes BABAK: creatinine returned to 0.8 with fluids and resolution of sepsis. community acquired pneumonia:cxr w RLL pneumonia Continue ceftriaxone/azithro (Day 12/24) blood cx neg AF: CHADS of 3. Started on eliquis at lower dose of 2.5 bid by cardiology who was consulted. No further episodes of RVR that I have seen today. Continue to monitor and if goes back into afib with RVR would treat with PRN IV pushes of dilt. encephalopathy:- seen by BLOCKER HAND who does note patient is cognitively impaired. Family concerned. Will monitor for improvement and have BLOCKER HAND perform slums. PPX- SCds, eliquis Fluids- Po Lytes- WNL, monitor Nutrition- regular Cor- need to discuss with family Dispo- inpatient for pneumonia, hypoxia. Will need SNF on dc, likely tomorrow Subjective: Nay is feeling overall better. still with some shortness of breath. Objective: Vital Signs Temp Pulse Resp BP Pulse Ox 36.4 C 92 20 137/70 H 97 06/13/18 15:19 06/13/18 15:19 06/13/18 15:19 06/13/18 15:19 06/13/18 15:19 Microbiology 06/07/18 16:45 Blood Culture - Final Blood 06/07/18 16:29 Blood Culture - Final Blood Laboratory Results 06/13/18 04:12 06/13/18 04:12 06/12/18 06/13/18 06/14/18 05:59 05:59 05:59 Intake Total 640 545 Output Total 300 1700 300 Balance 340 -1155 -300 PT 14.1 SEC (12.0-15.0) 06/05/18 19:50 INR 1.07 (0.83-1.16) 06/05/18 19:50 - Physical Exam Constitutional: no apparent distress, appears nourished, not in pain Eyes: PERRL, anicteric sclera, EOMI Ears, Nose, Mouth, Throat: moist mucous membranes, hearing normal, ears appear normal, no oral mucosal ulcers Cardiovascular: regular rate and rhythym, no murmur, rub, or gallop Respiratory: no respiratory distress, reduced air movement, inspiratory crackles , other (still with crackles at bases although definite improvement over previous examinations) Gastrointestinal: normoactive bowel sounds, soft, non-tender abdomen, no palpable masses Genitourinary: no bladder fullness, no bladder tenderness, no renal bruits Skin: no rashes or abrasions, no fluctuance, no induration Musculoskeletal: full muscle strength, no muscle tenderness, normal joint ROM Neurologic: AAOx3, sensation intact bilaterally Psychiatric: interacting appropriately, not anxious, not encephalopathic, thought process linear Lymph, Heme, Immunologic: no cervical LAD, no supraclavicular LAD ICD10 Worksheet Patient Problems: Problems Problem Status Onset Fever Acute
[2018-06-14 04:52] LABS: PLATELET COUNT 348 10^3/uL (150-400)
[2018-06-14] MEDS ORDERED: POTASSIUM CL 10 MEQ TAB PO ONE (08:17)
[2018-06-14] MEDS: APIXABAN 2.5 MG TAB PO SCH (08:45)
[2018-06-14] MEDS: AZITHROMYCIN 250 MG TAB PO SCH (08:46)
[2018-06-14] MEDS: METOPROLOL TARTRATE 25 MG TAB PO SCH (08:46)
--- NOTE | 2018-06-14 13:27 | PDIAF ---
- Diagnosis Code Status: Full Code - Medication Management Discharge Medications: electronically signed and located in the Home Medication List. - Orders Services needed: Registered Nurse Isolation Type: None Diet Recommendation: no restrictions on diet Diet Texture: Regular Texture Diet Additional Instructions: Activity as tolerated. take your medications as prescribed. No restrictions on diet. - Follow Up Care Current Providers and Referrals: Patient,NotPresent [Unknown] - As per Instructions
--- NOTE | 2018-06-14 13:51 | ASMTLACE ---
TDE Length of stay for Answers: 7-13 days current admission Acuity / Level of Answers: Yes Care: Did the patient have an inpatient admission? # of Emergency department Answers: 1-2 visits in the last 6 months Score: 9 Date Signed: 06/14/2018 01:51 PM Electronically Signed By:Pat Moran RN
[2018-06-14 15:12] VITALS: BP 132/59
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
--- NOTE | 2018-06-14 17:44 | ASMTDCNOTE ---
Case Management Discharge Discharge Order Complete? Answers: Yes Patient to Obtain Answers: Other Notes: [employer] Medications Transportation Arranged Answers: [facility] W/C Transport will Pick (Date 06/14/2018 07:30 PM & Time) Case Management Transport Answers: Yes Form Complete Faxed Final Orders Answers: Yes Notes: [employer] Agency/Facility Transfer Answers: Yes Notes: [employer] Report Printed & Faxed to Receiving Agency Family Notified Answers: Yes Notes: in room Discharge Comments Notes: 06/14/2018 Case Management Note Pt is a [employer]. Pt to discharge to [facility] rehab. Transportation arranged by [facility] at [facility]. [facility] wheelchair with O2. PCS form completed. IM signed. Pt sister and niece in room and agreeable to discharge. Faxed final orders. RN called report. Date Signed: 06/14/2018 05:44 PM Electronically Signed By:Pat Moran RN
--- NOTE | 2018-06-14 20:45 | PDDCSUM ---
Discharge Summary Discharge Summary: Nay Browne is an 82 year old healthy female admitted with confusion and sepsis. she was thought to have a PNA and so was started on rocephin and azithromycin. she developed an episode of atrial fibrillation and so cardiology was consulted and she was started on a low dose of eliquis. An echo was obtained that was essentially normal. She was treated with 7 days of abx and recovered quickly. on the day of discharge she still required low amounts of oxygen but was markedly improved. she was discharge to [facility] to complete rehabilitation. admit diagnosis- PNA, confusion, sepsis Discharge diagnosis- same as admission, with afib. new medications- eliquis 2.5 bid [facility] patient was in good condition with the following examination General NAD HEENT- PERRLA, MMM pink and acyanotic, head atraumatic normocephalic Lungs- CTABL, no wheezing, rales or rhonchi CV- RRR, No MRG, Normal S1,s2, no edema Abd- soft NTND, no organomegaly, no guarding or rebound, BS present - no CVA tenderness Ext- No CCE or calf pain Psych- appropriate mood and affect Neuro- CN2-12 intact, no focal deficits Skin- no rashes.
== END 2018-06-14 20:03 | DRG 871 ==
LOC: F3E 22:59 → F2W 06-08 09:45
PROVIDERS: ADMIT Internal Medicine; ATTEND Internal Medicine
DX: A41.9 Sepsis, unspecified organism (principal); J18.9 Pneumonia, unspecified organism; G93.41 Metabolic encephalopathy; I48.0 Paroxysmal atrial fibrillation; Z86.72 Personal history of thrombophlebitis; N17.9 Acute kidney failure, unspecified; E87.1 Hypo-osmolality and hyponatremia
CPT/HCPCS: 80307; 92507-GN; 92523-GN; 97116-GP; 97162-GP; 97166-GO; 97530-GP; 97535-GO; G0480; G8978-GP-CM; G8979-GP-CJ; G8987-GO-CL; G8988-GO-CJ; G9165-GN-CK; G9166-GN-CI; J0456; J0696; J1650; J1940; J3480; Q9967

== ENCOUNTER 2018-11-10 12:34 | Emergency (ER) | payer OTHER ==
[2018-11-10] MEDS ORDERED: NS 1,000 ML IV ONE (12:35)
--- NOTE | 2018-11-10 12:38 | EDPHY ---
H & P Time Seen by Provider: 11/10/18 12:35 HPI/ROS: CHIEF COMPLAINT: Fall HISTORY OF PRESENT ILLNESS: Patient is an 83-year-old female who stood up quickly on her deck and felt lightheaded and fell forward. She hit the ground and her glasses cut her forehead and cheek. She denies headache or neck pain. She does not think that she lost consciousness. She states that this often happens to her when she has not eaten and stands up quickly. She denies chest pain or shortness of breath. She does have a history of atrial fibrillation and is on Eliquis. Severity: Moderate Modifying factors: None REVIEW OF SYSTEMS: Constitutional: denies: chills, fever, recent illness, recent injury EENTM: denies: blurred vision, double vision, nose congestion Respiratory: denies: cough, shortness of breath Cardiac: denies: chest pain, irregular heart rate, lightheadedness, palpitations Gastrointestinal/Abdominal: denies: abdominal pain, diarrhea, nausea, vomiting, blood streaked stools Genitourinary: denies: dysuria, frequency, hematuria, pain Musculoskeletal: denies: joint pain, muscle pain Skin: See HPI Neurological: denies: headache, numbness, paresthesia, tingling, dizziness, weakness Hematologic/Lymphatic: denies: blood clots, easy bleeding, easy bruising Immunologic/allergic: denies: HIV/AIDS, transplant 10 systems reviewed and negative except as noted EXAM: GENERAL: Well-appearing, well-nourished and in no acute distress. HEAD: Forehead laceration, otherwise Atraumatic, normocephalic. EYES: Pupils equal round and reactive to light, extraocular movements intact, sclera anicteric, conjunctiva are normal. ENT: TMs normal, nares patent, oropharynx clear without exudates. Moist mucous membranes. NECK: Nontender, Normal range of motion, supple without lymphadenopathy or JVD. LUNGS: Breath sounds clear to auscultation bilaterally and equal. No wheezes rales or rhonchi. HEART: Regular rate and rhythm without murmurs, rubs or gallops. ABDOMEN: Soft, nontender, normoactive bowel sounds. No guarding, no rebound. No masses appreciated. BACK: No CVA tenderness, no spinal tenderness, step-offs or deformities EXTREMITIES: Normal range of motion, no pitting or edema. No clubbing or cyanosis. NEUROLOGICAL: Cranial nerves II through XII grossly intact. Normal speech, normal gait. 5/5 strength, normal movement in all extremities, normal sensation , normal reflexes PSYCH: Normal mood, normal affect. SKIN: Lacerations to forehead and left cheek Source: Patient Exam Limitations: No limitations - Personal History Current Tetanus/Diphtheria Vaccine: Yes - Medical/Surgical History Hx Asthma: No Hx Chronic Respiratory Disease: No Hx Diabetes: No Hx Cardiac Disease: No Hx Renal Disease: No Hx Cirrhosis: No Hx Alcoholism: No Hx HIV/AIDS: No Hx Splenectomy or Spleen Trauma: No Other PMH: Atrial fibrillation, Esophoria, thrombocytopenia - Family History Significant Family History: No pertinent family hx - Social History Smoking Status: Never smoked Alcohol Use: Sober Drug Use: None Constitutional: Initial Vital Signs Temperature (C) 36.6 C 11/10/18 12:38 Heart Rate 75 11/10/18 12:38 Respiratory Rate 18 11/10/18 12:38 Blood Pressure 180/79 H 11/10/18 12:38 O2 Sat (%) 97 11/10/18 12:38 O2 Delivery Mode Room Air Allergies/Adverse Reactions: No Known Allergies Allergy (Unverified 11/10/18 12:41) Home Medications: Medication Instructions Recorded Apixaban [Eliquis] 2.5 mg PO BID 30 Days #60 tab 06/14/18 Metoprolol Tartrate [Lopressor 25 25 mg PO BID 30 Days #60 tab 06/14/18 mg (*)] Medical Decision Making - Diagnostics EKG Interpretation: An EKG obtained and was read and documented in trace view. Please see trace view for full reading and report. Sinus rhythm, no acute ischemic changes Imaging: Discussed imaging studies w/ insurance follow up representative Radiologist Procedures: Procedure: Laceration repair. Verbal consent was obtained from the patient. The 3 cm stellate left eyebrow laceration was anesthetized with 1% lidocaine with epi and bicarbonate locally infiltrated. The wound was irrigated copiously according to protocol, draped and explored to its base. It was approximately 1/2 cm deep. There were no deep structures involved. No tendon, nerve, or vascular injury was identified when explored through full range of motion. No foreign body was identified. The wound was repaired with 5.0 fast-absorbing gut 8 sutures, interrupted. The wound repair was complex with multiple flap alignment. The procedure was performed by myself. A dressing was then placed with sterile gauze. Procedure: Laceration repair. Verbal consent was obtained from the patient. The 1.5 cm left cheek laceration was anesthetized with 1% lidocaine with epi and bicarbonate locally infiltrated. The wound was irrigated copiously according to protocol, draped and explored to its base. It was approximately 1/2 cm deep. There were no deep structures involved. No tendon, nerve, or vascular injury was identified when explored through full range of motion. No foreign body was identified. The wound was repaired with 5.0 fast-absorbing at, 3 sutures, interrupted. The wound repair was simple . The procedure was performed by myself. A dressing was then placed with sterile gauze. ED Course/Re-evaluation: 2:20 p.m. Patient's lab work, EKG and head CT are reassuring. Patient states that she feels fine and is eager to go home. She tolerated suture repair. She declines further observation. We discussed the risks of the blood thinner she is on. I encouraged her to return if she developed headache or worsening symptoms. She agrees. We discussed suture care and dissolving sutures. Discussed her syncopal event. She states that this is not unusual for her and that she was working too hard and had not had enough to eat. She declines further observation or admission for this. Differential Diagnosis: Partial list of the Differential diagnosis considered include but were not limited to; laceration, contusion and although unlikely based on the history and physical exam, I also considered intracranial injury, head injury, neck injury, arrhythmia. I discussed these differential diagnoses and the plan with the patient as well as the usual and expected course. The patient understands that the diagnosis is provisional and that in medicine we are not always correct and that further workup is often warranted. Usual and customary warnings were given. All of the patient's questions were answered. The patient was instructed to return to the emergency department should the symptoms at all worsen or return, otherwise to followup with the physician as we discussed. - Data Points Laboratory Results: Laboratory Results 11/10/18 12:40 11/10/18 12:40 Medications Given: Discontinued Medications Sodium Chloride (Ns) 1,000 mls @ 0 mls/hr IV ONCE ONE; Wide Open PRN Reason: Protocol Stop: 11/10/18 12:36 Last Admin: 11/10/18 13:09 Dose: 1,000 mls Departure - Departure Disposition: Home, Routine, Self-Care Clinical Impression: Pre-syncope Facial laceration Qualifiers: Encounter type: initial encounter Qualified Code(s): S01.81XA - Laceration without foreign body of other part of head, initial encounter Condition: Good Instructions: Laceration (ED), Syncope (ED), Care For Your Absorbable Stitches (ED) Additional Instructions: If your stitches do not dissolve in 5 days return to have them removed. Referrals: Patient,NotPresent [Unknown] - As per Instructions Malena Griffith MD [Medical Doctor] - As per Instructions
[2018-11-10 12:47] LABS: PLATELET COUNT 257 10^3/uL (150-400)
[2018-11-10 12:58] LABS: INR 0.98 (0.83-1.16); PROTIME(PATIENT) 12.6 SEC (12.0-15.0)
--- NOTE | 2018-11-10 13:27 | CPEKG ---
Test Reason : OPEN Blood Pressure : / mmHG Vent. Rate : 075 BPM Atrial Rate : 073 BPM P-R Int : 178 ms QRS Dur : 082 ms QT Int : 419 ms P-R-T Axes : 036 013 057 degrees QTc Int : 468 ms Sinus rhythm Probable left atrial enlargement Minimal ST elevation, inferior leads Confirmed by Riccardo Law ([id number]) on 11/10/2018 1:26:41 PM Referred By: Riccardo Law Confirmed By:Riccardo Law
[2018-11-20 10:45] VITALS: BP 145/88
== END 2018-11-10 14:46 | disposition home or self-care (01) ==
LOC: EDUNIT#
PROC: 0HQ1XZZ Repair Face Skin, External Approach (ICD-10-PCS; principal; 2018-11-10)
PROC: 08QPXZZ Repair Left Upper Eyelid, External Approach (ICD-10-PCS; principal; 2018-11-10)
DX: S01.112A Laceration without foreign body of left eyelid and periocular area, initial encounter (principal); S01.412A Laceration without foreign body of left cheek and temporomandibular area, initial encounter; R55 Syncope and collapse; I48.91 Unspecified atrial fibrillation; W19.XXXA Unspecified fall, initial encounter; Z79.01 Long term (current) use of anticoagulants
CPT/HCPCS: G0390; G0480